=== PATIENT | female | born 1980 | race American Indian/Alaskan Native ===

== ENCOUNTER 2016-11-26 09:53 | Emergency (ER) | payer MEDICAID ==
[2016-11-26 10:33] VITALS: BP 114/78
--- NOTE | 2016-11-26 13:37 | XRay Report ---
RIGHT SHOULDER RADIOGRAPHS INDICATION: Pain. COMPARISON: None similar. FINDINGS: Frontal and Y views of the right shoulder demonstrate normal humeral head contour, well positioned against the glenoid. Normal acromioclavicular joint. Preserved scapular contour. Normal visualized soft tissues, right ribs and lung. Few extrinsic artifacts. CONCLUSION: No acute right shoulder radiographic abnormality, as described. Thank you for the opportunity to participate in this patient's care.
--- NOTE | 2016-11-26 14:06 | Emergency Department Report ---
ED Upper Extremity Inj HPI - General Chief Complaint: Shoulder Injury Stated Complaint: RT ARM PAIN Time Seen by Provider: 11/26/16 13:44 Source: patient Mode of arrival: Ambulatory Limitations: No Limitations - History of Present Illness Initial Comments: Complaining of atraumatic right shoulder pain for the past 5 days. Patient states she saw up with her arm raised above her head and awoke with severe pain and reduced range of motion. Complaint: Injury to:: right, shoulder -: Sudden, days(s) Other Extremity Injury: Shoulder: Right Other Injuries: none Handedness: right Improves With: none Worsens With: movement of extremity Associated Symptoms: weakness, neck pain. denies: numbness, heard/felt popping sensat - Related Data Home Medications Medication Instructions Recorded Confirmed Last Taken Ibuprofen [Motrin] 800 mg PO Q8HR PRN 11/26/16 11/26/16 11/26/16 07:00 Methocarbamol [Robaxin TAB] 750 mg PO Q4H PRN 11/26/16 11/26/16 11/26/16 07:00 Previous Rx's Medication Instructions Recorded Last Taken Type Meloxicam [Mobic] 15 mg PO QDAY #10 tablet 11/26/16 Unknown Rx Prednisone [predniSONE 10 mg 10 mg PO .TAPER #1 tab.ds.pk 11/26/16 Unknown Rx (6-Day Pack, 21 Tabs)] Allergies Allergy/AdvReac Type Severity Reaction Status Date / Time hydrocodone AdvReac Itching Verified 11/26/16 10:24 tramadol AdvReac Itching Verified 11/26/16 10:24 ED Review of Systems ROS: Stated complaint: RT ARM PAIN Other details as noted in HPI Constitutional: no symptoms reported Eyes: as per HPI ENT: as per HPI Respiratory: no symptoms reported Cardiovascular: as per HPI Gastrointestinal: as per HPI Musculoskeletal: arthralgia Skin: as per HPI ED Past Medical Hx - Past Medical History Previous Medical History?: No - Surgical History Additional Surgical History: ectopic - Social History Smoking Status: Current Every Day Smoker Substance Use Type: None - Medications Home Medications: Home Medications Medication Instructions Recorded Confirmed Last Taken Type Ibuprofen [Motrin] 800 mg PO Q8HR PRN 11/26/16 11/26/16 11/26/16 07:00 History Meloxicam [Mobic] 15 mg PO QDAY #10 tablet 11/26/16 Unknown Rx Methocarbamol [Robaxin TAB] 750 mg PO Q4H PRN 11/26/16 11/26/16 11/26/16 07:00 History Prednisone [predniSONE 10 mg 10 mg PO .TAPER #1 tab.ds.pk 11/26/16 Unknown Rx (6-Day Pack, 21 Tabs)] ED Physical Exam - General Limitations: No Limitations General appearance: alert, in no apparent distress - Eye Eye exam: Present: normal appearance, PERRL, EOMI - ENT ENT exam: Present: mucous membranes moist - Neck Neck exam: Present: normal inspection, full ROM. Absent: tenderness, meningismus - Respiratory Respiratory exam: Present: normal lung sounds bilaterally. Absent: respiratory distress - Cardiovascular Cardiovascular Exam: Present: regular rate - Expanded Upper Extremity Exam Right Shoulder Exam: Present: tenderness (bicep head tenderness), other (patient has painful abduction and internal rotation). Absent: swelling, abrasion, laceration, ecchymosis, deformity, crepidus, dislocation, erythema, tenderness over AC joint Neuro motor exam: Present: wrist extension intact, thumb opposition intact, thumb IP flexion intact Neurosensory exam: Present: 2-point discrimination, radial nerve intact, ulnar nerve intact Vascular: Present: normal capillary refill, radial pulse (strong), brachial pulse (strong). Absent: vascular compromise ED Course Vital Signs 11/26/16 10:22 Temperature 98.7 F Pulse Rate 65 Respiratory 17 Rate Blood Pressure 114/78 O2 Sat by Pulse 100 Oximetry - Reevaluation(s) Reevaluation #1: 11/26/16 14:06 pt advised that she needs ortho f/u. pt relates lynn t the sling helps with pain Critical care attestation.: If time is entered above; I have spent that time in minutes in the direct care of this critically ill patient, excluding procedure time. ED Disposition Clinical Impression: Shoulder pain, right Disposition: DISCHARGED TO HOME OR SELFCARE Is pt being admited?: No Condition: Stable Instructions: Rotator Cuff Tendinitis (ED) Prescriptions: Meloxicam [Mobic] 15 mg PO QDAY #10 tablet Prednisone [predniSONE 10 mg (6-Day Pack, 21 Tabs)] 10 mg PO .TAPER #1 tab.ds.pk Referrals: PRIMARY CARE, [Primary Care Provider] - 3-5 Days PAULIE RUBIO MD [Staff Physician] - 3-5 Days Forms: Work/School Release Form(ED)
== END 2016-11-26 14:21 | disposition home or self-care (01) ==
LOC: ED 09:53
DX: M25.511 Pain in right shoulder (principal); F17.200 Nicotine dependence, unspecified, uncomplicated; Z88.5 Allergy status to narcotic agent
CPT/HCPCS: 99283

== ENCOUNTER 2019-07-07 13:41 | Outpatient (CLI) | payer OTHER ==
--- NOTE | 2019-07-08 11:14 | Mammography Report ---
BONE DEXA CLINICAL: Back pain. TECHNIQUE: 2 site bone DEXA performed on an Hologic scanner. FINDINGS: The average BMD of the lumbar spine L1-L4 is 1.047g/cm squared with a T score of 0 and a Z score of - 0.8. The average total BMD of the left hip is 0.882 g/cm squared with a T score of -0.5and a Z score of -0 .8. IMPRESSION: 1. WHO classification: Normal with average fracture risk based on spine measurements. 2. WHO classification Normal with average fracture risk based on left hip measurements. RECOMMENDATION: Clinical correlation and routine screening. Definitions: BMD equal bone mineral density T score = BMD related to peak bone mass of young adult ([place] expressed an standard deviation) Z score = age-matched BMD expressed in SD World health organization (WHO) diagnostic criteria Normal T score greater than equal to 1 standard deviation Osteopenia T score between -1 and -2.4 standard deviation Osteoporosis T score -2.5 standard deviation or below. Note: BMD is not the only risk factor for fracture; also consider factors such as the patient's age, risk of falling, previous osteoporotic fracture, family history of osteoporotic fractures, current sm oker and low body weight. Z scores are not calculated if greater than 80 years of age. Signer Name: Garrett Kennedy MD Signed: 07/08/2019 11:10 AM Workstation Name: [id number]
== END 2019-07-07 13:42 | disposition home or self-care (01) ==
LOC: MAMMO 13:41
PROVIDERS: ATTEND Advanced Practice Midwife
DX: Z30.8 Encounter for other contraceptive management (principal); M54.5 Low back pain; F17.200 Nicotine dependence, unspecified, uncomplicated; Z78.0 Asymptomatic menopausal state
CPT/HCPCS: 77080